=== PATIENT | male | born 1975 | race African-American/Black ===

== ENCOUNTER 2022-10-24 09:30 | Outpatient (RCR) | payer OTHER, SELFPAY | END 2023-01-28 10:17 | disposition home or self-care (01) | LOC: HO.OT 09:30 | PROVIDERS: PCP Internal Medicine; Visit Provider Internal Medicine | DX: I63.89 Other cerebral infarction (principal) | CPT/HCPCS: 97014; 97035; 97110; 97112; 97140; 97165; 97530 ==

== ENCOUNTER 2022-10-24 10:00 | Outpatient (RCR) | payer OTHER, SELFPAY ==
[2022-09-26 14:03] VITALS: BP 110/74; PULSE 90
== END 2022-12-04 14:30 | disposition home or self-care (01) ==
LOC: HO.PT 10:00
PROVIDERS: PCP Internal Medicine; Visit Provider Internal Medicine
DX: I63.89 Other cerebral infarction (principal)
CPT/HCPCS: 97110; 97112; 97161; 97530

== ENCOUNTER 2024-03-04 09:53 | Emergency (ER) | payer OTHER, SELFPAY ==
--- NOTE | ~2024-03-04 | XR_ITS ---
EXAMINATION: XR CHEST CLINICAL INFORMATION: Chest pain COMPARISON: None available. TECHNIQUE: 2 views of the chest were obtained. FINDINGS: No significant abnormality is noted involving the heart, lungs, mediastinum, bony thorax or soft tissues. XR/XR chest 2V IMPRESSION: Unremarkable examination. Electronically signed by: Jordan Stafford MD 03/04/2024 12:59 PM EDT
--- NOTE | 2024-03-04 09:57 | ECG_ITS ---
Test Reason : chest pain Blood Pressure : / mmHG Vent. Rate : 093 BPM Atrial Rate : 093 BPM P-R Int : 166 ms QRS Dur : 090 ms QT Int : 358 ms P-R-T Axes : 060 -15 035 degrees QTc Int : 445 ms Normal sinus rhythm Inferior infarct , age undetermined Abnormal ECG No previous ECGs available Referred By: Generic ED Physician Electronically Signed By:MALENA EASTON
[2024-03-04 10:08] VITALS: BP 125/70; PULSE 95; RESP 14; TEMP 35.7; O2SAT 98; BMI 24.8
[2024-03-04 11:07] LABS: Prothrombin Time 11.8 SEC (10.9-12.4)
[2024-03-04 11:09] LABS: Hematocrit 40.4 % (42.0-52.0); Hemoglobin 13.7 g/dl (14.0-18.0); Mean Corpuscular HGB Conc 33.9 g/dl (31.0-36.0); Mean Corpuscular Hemoglobin 30.9 pg (27.0-33.0); Mean Corpuscular Volume 91.2 fL (80.0-98.0); Mean Platelet Volume 10.2 fL (9.4-12.4); Partial Thromboplastin Time 39.2 SEC (26.0-36.8); Platelet Count 133 X10*3/uL (160-400); Red Blood Count 4.43 X10*6/uL (4.60-5.80); Red Cell Distribution Width 13.2 % (11.0-16.0); White Blood Count 5.3 X10*3/uL (4.8-10.8)
[2024-03-04 11:39] LABS: Atypical Lymph Absolute Manual 0.5 x10*3/uL; Atypical Lymphs Percent Manual 9 % (0-6); Band Neutrophils Percent 0 % (3-5); Basophils Abs Manual 0.1 X10*3/uL (0.0-0.2); Basophils Percent Manual 1 % (0-2); Eosinophils Absolute Manual 0.2 X10*3/uL (0.0-0.4); Eosinophils Percent Manual 3 % (0-4); Lymphocytes Percent Manual 38 % (20-40); Monocytes Absolute Manual 0.1 X10*3/uL (0.1-1.2); Monocytes Percent Manual 2 % (2-11); Neutrophils Absolute Manual 2.5 X10*3/uL (2.0-8.3); Neutrophils Percent Manual 47 % (45-73)
[2024-03-04 11:41] LABS: Platelet Estimate DECREASED (NORMAL); Platelet Morphology Comment NORMAL; RBC Morphology NORMAL; Smudge Cells PRESENT
[2024-03-04 11:52] LABS: Influenza A PCR NEGATIVE (Negative); Influenza B PCR NEGATIVE (Negative); Resp Syncy Virus RNA Qual PCR NEGATIVE (Negative); SARS COV2 PCR INHOUSE NEGATIVE (Negative)
[2024-03-04 12:05] LABS: Alanine Aminotransferase 21 U/L (0-40); Albumin Level 4.2 g/dL (3.5-5.0); Alkaline Phosphatase 85 U/L (39-117); Anion Gap 11 (12-20); Aspartate Amino Transferase 35 U/L (5-37); Bilirubin Total 0.5 mg/dL (0.0-1.0); Blood Urea Nitrogen 16 mg/dL (9-16); Calcium 9.6 mg/dL (8.4-10.2); Carbon Dioxide 28 mmol/L (22-29); Chloride 107 mmol/L (96-108); Creatinine Clr Calc Pharmacy 107.3; Estimated Glomerular Filt Rate > 60; Glucose Random 95 mg/dL (60-115); Magnesium 1.9 mg/dL (1.6-2.6); Sodium 142 mmol/L (135-145); Total Protein 7.2 g/dL (6.5-8.0)
--- NOTE | 2024-03-04 12:11 | ED.CHESTPAIN ---
HPI - Chest Pain General Chief Complaint: Chest Pain Stated Complaint: cp-l arm discomfort Time Seen by Provider: 03/04/24 10:54 Source: patient Mode of arrival: ambulatory Limitations: no limitations History of Present Illness HPI narrative: 48-year-old male presents emergency department with chest pain. Patient has never been here before this no previous records to review he states he has been having chest pain radiating to his jaw and having palpitations. 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 He now also has a seizure disorder and is on 2 different seizure medications. He gets all his care usually at the [facility]. Patient denies fevers chills cough nausea vomiting or diarrhea. He states it was left-sided burning what she thought was acid reflux but it continued and then he had some tightening of his jaw as well. Patient came in his symptoms have since resolved he denies any history of this in the past he has no family history of at an early age. MD complaint: chest pain Related Data Allergies Allergy/AdvReac Type Severity Reaction Status Date / Time No Known Allergies Allergy Verified 03/04/24 10:11 Review of Systems Review of Systems: Review of systems: General: Patient denies any fever chills recent illness or falls Musculoskeletal: Denies back pain or body aches or other injuries HEENT: denies headache, runny nose, ear pain Respiratory: denies shortness of breath, cough Cardiovascular: no chest pain at this time initial presentation was for chest pain or palpitations : denies dysuria, frequency Abdomen: no nausea vomiting denies abdominal pain Extremities: no swelling, no pain Skin: no diaphoresis Yes all other systems are reviewed and are negative PMFSH Social History Social History Advance Directives: No Advance Directives Information Provided: Yes Do you have a plan to hurt others: No Plan Physical Exam Vital Signs: Vital Signs: Last Vital Signs Temp 97.9 F 03/04/24 14:15 Pulse 98 03/04/24 14:15 Resp 15 03/04/24 14:15 BP 115/85 03/04/24 14:15 Pulse Ox 97 03/04/24 14:15 O2 Del Method Room Air 03/04/24 14:15 BMI result Body Mass Index 24.8 General: Well-appearing well-nourished in no signs of distress HEENT: Normocephalic atraumatic Neck: No signs of JVD, no masses no tenderness or lymphadenopathy Cardiovascular: Regular rate and rhythm Respiratory: Clear to auscultation bilaterally Abdomen: Soft nontender no masses Extremities: Normal pedal pulses no signs of edema Skin: Dry warm no rashes Back: No tenderness full ROM Course Course Course Narrative: Patient remained asymptomatic in the ER repeat troponin is also negative. I do feel comfortable discharging the patient home with close PCP follow up. Medications Administered Discontinued Medications Generic Name Dose Route Start Last Admin Trade Name Cherry PRN Reason Stop Dose Admin Al Hydroxide/Mg Hydroxide 30 ml 03/04/24 12:25 03/04/24 12:34 Magnesium Hydrox/Alum Hydrox 30 Ml Oral.Susp PO 03/04/24 12:26 30 ml ONCE ONE Administration Aspirin 324 mg 03/04/24 12:25 03/04/24 12:34 Aspirin 81 Mg Tab.Chew PO 03/04/24 12:26 324 mg ONCE ONE Administration Famotidine 20 mg 03/04/24 12:25 03/04/24 12:34 Famotidine 20 Mg Tablet PO 03/04/24 12:26 20 mg ONCE ONE Administration Medical Decision Making Medical Decision Making [facility] Narrative: This is likely acid reflux but I do need to rule out ACS I will get an x-ray as well to make sure there is nothing gone in his lungs I will give the patient Pepcid Maalox and aspirin initial set of labs already negative with the time I saw the patient. Differential Diagnosis Differential Diagnoses: The differential diagnosis associated with the presentation includes Chest pain ACS GERD pancreatitis though less likely the patient denies any alcohol or drug use he states he was not eating this symptoms started Lab Data [facility] Lab Attestation statement: I reviewed the patient's lab results. 03/04/24 10:49 03/04/24 11:42 Labs: Lab Results 03/04/24 03/04/24 03/04/24 Range/Units 10:49 11:42 13:44 WBC 5.3 (4.8-10.8) X10*3/uL RBC 4.43 L (4.60-5.80) X10*6/uL Hgb 13.7 L (14.0-18.0) g/dl Hct 40.4 L (42.0-52.0) % MCV 91.2 (80.0-98.0) fL MCH 30.9 (27.0-33.0) pg MCHC 33.9 (31.0-36.0) g/dl RDW 13.2 (11.0-16.0) % Plt Count 133 L (160-400) X10*3/uL MPV 10.2 (9.4-12.4) fL Immature Gran % (Auto) Cancelled Neut % (Auto) Cancelled Lymph % (Auto) Cancelled Bacon % (Auto) Cancelled Eos % (Auto) Cancelled Baso % (Auto) Cancelled Lymph # (Auto) Cancelled Bacon # (Auto) Cancelled Eos # (Auto) Cancelled Baso # (Auto) Cancelled Abs Immat Gran (auto) Cancelled Absolute Neuts (auto) Cancelled Absolute Nucleated RBC 0.000 (0.0-0.012) X10*3/uL Nucleated RBC % (auto) 0.0 (0.0-0.2) /100WBC Neutrophils % (Manual) 47 (45-73) % Band Neutrophils % 0 L (3-5) % Lymphocytes % (Manual) 38 (20-40) % Atypical Lymphs % (Man) 9 H (0-6) % Monocytes % (Manual) 2 (2-11) % Eosinophils % (Manual) 3 (0-4) % Basophils % (Manual) 1 (0-2) % Abs Neuts (Manual) 2.5 (2.0-8.3) X10*3/uL Lymphocytes # (Manual) 2.0 (1.2-4.9) X10*3/uL Atyp Lymphs # (Manual) 0.5 x10*3/uL Monocytes # (Manual) 0.1 (0.1-1.2) X10*3/uL Eosinophils # (Manual) 0.2 (0.0-0.4) X10*3/uL Basophils # (Manual) 0.1 (0.0-0.2) X10*3/uL Smudge Cells PRESENT Platelet Estimate DECREASED (NORMAL) Plt Morphology Comment NORMAL RBC Morphology NORMAL PT 11.8 (10.9-12.4) SEC INR 1.0 (0.9-1.1) APTT 39.2 H (26.0-36.8) SEC Sodium 142 (135-145) mmol/L Potassium 4.0 (3.3-5.1) mmol/L Chloride 107 (96-108) mmol/L Carbon Dioxide 28 (22-29) mmol/L Anion Gap 11 L (12-20) BUN 16 (9-16) mg/dL Creatinine 1.00 (0.5-1.4) mg/dL Estim Creat Clear Calc 107.3 Estimated GFR > 60 Random Glucose 95 (60-115) mg/dL Calcium 9.6 (8.4-10.2) mg/dL Magnesium 1.9 (1.6-2.6) mg/dL Total Bilirubin 0.5 (0.0-1.0) mg/dL AST 35 (5-37) U/L ALT 21 (0-40) U/L Alkaline Phosphatase 85 (39-117) U/L Troponin I High Sens < 2.7 < 2.7 (<3.5-35.0) ng/L Total Protein 7.2 (6.5-8.0) g/dL Albumin 4.2 (3.5-5.0) g/dL TSH 1.20 (0.32-4.0) uIU/mL Influenza Type A (PCR) NEGATIVE (Negative) Influenza Type B (PCR) NEGATIVE (Negative) RSV RNA Qual (PCR) NEGATIVE (Negative) SARS-CoV-2 RNA (RT-PCR) NEGATIVE (Negative) Independent Interpretation I performed an independent interpretation of an: EKG and Plain X-Ray Radiology Impression Discussion of test interpretation with radiology: I have reviewed the radiologist's reading. Scores Heart Score History: -0- slightly suspicious ECG: -0- normal Age: -0- < or = 45 Risk factory: -0- no risk factors known Troponin: -0- < or = normal limit Score: 0 Risk: 1.7% Discharge Plan Discharge Clinical Impression: Chest pain Patient Disposition: Home, Self-Care Instructions: Chest Pain (DC) Additional Instructions: You were seen today for chest pain. You had x-ray and labs done which were all unremarkable. Please call follow up with your doctor if you have any other concerns please return to the ER. Print Language: [place]
[2024-03-04 12:14] LABS: Troponin-I High Sensitivity < 2.7 ng/L (<3.5-35.0)
[2024-03-04] MEDS: Magnesium Hydrox/Alum Hydrox 30 ML ORAL.SUSP PO (12:34)
[2024-03-04] MEDS: Famotidine 20 MG TABLET PO (12:34)
[2024-03-04] MEDS: Aspirin 81 MG TAB.CHEW 324 MG PO (12:34)
[2024-03-04 12:41] VITALS: BP 105/80; PULSE 93; RESP 12; TEMP 36.5; O2SAT 97
[2024-03-04 14:15] VITALS: BP 115/85; PULSE 98; RESP 15; TEMP 36.6; O2SAT 97
[2024-03-04 14:18] LABS: Troponin-I High Sensitivity < 2.7 ng/L (<3.5-35.0)
[2024-03-04 15:01] VITALS: BP 115/85; PULSE 98; RESP 15; TEMP 36.6; O2SAT 97
== END 2024-03-04 15:18 | disposition home or self-care (01) ==
PROVIDERS: Physician Assistant Medical; Emergency Provider Student in an Organized Health Care Education/Training Program
DX: R07.89 Other chest pain (principal); Z79.899 Other long term (current) drug therapy; Z03.818 Encounter for observation for suspected exposure to other biological agents ruled out
CPT/HCPCS: 0241U; 36415; 71046; 80053; 83735; 84443; 84484; 85007; 85025; 85027; 85610; 85730; 93005; 99283; 99284